=== PATIENT | male | born 1965 | race Caucasian/White ===

== ENCOUNTER 2016-06-25 13:24 | Emergency (ER) | payer BC ==
--- NOTE | 2016-06-25 13:46 | ER Document Report ---
ED Medical Screen (RME) - General Stated Complaint: HAND NUMBNESS Notes: 50 yo male c/o right hand going numb. feels cold, moslty 4th and 5th finger. symptoms intermittant x 5-6 days. today symptoms persistant. no chest pain or shortness of breath. - Related Data Allergies/Adverse Reactions: No Known Allergies Allergy (Unverified 06/25/16 13:42) Physical Exam - Vital signs Vitals: Temp Pulse Resp BP Pulse Ox 98.2 F 78 18 147/87 H 95 06/25/16 13:41 06/25/16 13:41 06/25/16 13:41 06/25/16 13:41 06/25/16 13:41 Course - Vital Signs Vital signs: Temp Pulse Resp BP Pulse Ox 98.2 F 78 18 147/87 H 95 06/25/16 13:41 06/25/16 13:41 06/25/16 13:41 06/25/16 13:41 06/25/16 13:41
--- NOTE | 2016-06-25 15:22 | ER Document Report ---
ED General - General Chief Complaint: Hand Pain Stated Complaint: HAND NUMBNESS Mode of Arrival: Ambulatory Information source: Patient TRAVEL OUTSIDE OF THE [place] IN LAST 30 DAYS: No - HPI Onset: Other - SEVERAL DAYS Onset/Duration: Gradual, Waxing and waning Quality of pain: Throbbing Severity: Moderate Associated symptoms: denies: Chest pain, Chills, Productive cough, Fever, Shortness of breath Exacerbated by: Other - COLD Relieved by: Denies Similar symptoms previously: No Recently seen / treated by doctor: No Notes: Patient describes episodic discomfort in the right hand, affecting mostly the fourth and fifth digits. Episodes of pain are accompanied by pallor and/or cyanosis of the affected digits. Usually resolves spontaneously after 30-45 minutes. - Related Data Allergies/Adverse Reactions: No Known Allergies Allergy (Unverified 06/25/16 13:42) Past Medical History - General Information source: Patient - Social History Smoking Status: Former Smoker Cigarette use (# per day): No Chew tobacco use (# tins/day): Yes Frequency of alcohol use: None Drug Abuse: None Lives with: Spouse/Significant other Family History: Other - NEG. RHEUMATIC DIS. Patient has suicidal ideation: No Patient has homicidal ideation: No - Past Medical History Cardiac Medical History: Reports: Hx Hypercholesterolemia, Hx Hypertension Pulmonary Medical History: Reports: None EENT Medical History: Reports: None Neurological Medical History: Reports: None Endocrine Medical History: Reports: None Renal/ Medical History: Reports: None. Denies: Hx Peritoneal Dialysis Malignancy Medical History: Reports None GI Medical History: Reports: None Musculoskeltal Medical History: Reports None Psychiatric Medical History: Reports: None Traumatic Medical History: Reports: Other - FX R. WRIST, S/P ORIF Past Surgical History: Reports: Hx Orthopedic Surgery - R. WRIST Review of Systems - Review of Systems Constitutional: No symptoms reported. denies: Chills, Fever, Weight gain, Weight loss, Recent illness EENT: No symptoms reported Cardiovascular: No symptoms reported Respiratory: No symptoms reported Gastrointestinal: No symptoms reported Genitourinary: No symptoms reported Musculoskeletal: See HPI Skin: No symptoms reported Hematologic/Lymphatic: No symptoms reported Neurological/Psychological: See HPI Physical Exam - Vital signs Vitals: Temp Pulse Resp BP Pulse Ox 98.2 F 78 18 147/87 H 95 06/25/16 13:41 06/25/16 13:41 06/25/16 13:41 06/25/16 13:41 06/25/16 13:41 Interpretation: Hypertensive. No: Tachycardic, Tachypneic, Febrile - General General appearance: Appears well, Alert In distress: None - HEENT Head: Normocephalic Eyes: Normal Conjunctiva: Normal Ears: Normal Nasal: Normal Mouth/Lips: Normal Mucous membranes: Normal Pharynx: Normal Neck: Normal - Respiratory Respiratory status: No respiratory distress Breath sounds: Normal - Cardiovascular Rhythm: Regular Heart sounds: Normal auscultation Murmur: No Pulses: Normal: Radial - ULNAR PULSE ALSO STRONG Normal capillary refill: No Decreased capillary refill in seconds: 5 Notes: Decreased capillary refill noted in digits 4 and 5, right hand. - Abdominal Inspection: Obese - Extremities General upper extremity: No: Normal inspection - R. HAND (SEE BELOW) Wrist: Other - RADIAL AND ULNAR PULSES STRONG BILATERALLY Hand: Nontender, Nail injury - SUB-UNGUAL LESIONS (? INFARCTS) SEEN ON ALL DIGITS OF RIGHT HAND, NONE ON LEFT., Other - MILD CYANOSIS OF DIGITS #4 AND 5 RIGHT.. No: Swelling - Neurological Neuro grossly intact: Yes Cognition: Normal Orientation: AAOx4 - Psychological Associated symptoms: Normal affect, Normal mood - Skin Skin Temperature: Warm Skin Moisture: Dry Skin Color: Normal, Dusky - PORTIONS OF R. HAND (SEE ABOVE) Skin Turgor: Elastic Course - Vital Signs Vital signs: Temp Pulse Resp BP Pulse Ox 98.4 F 55 L 18 146/82 H 95 06/25/16 15:48 06/25/16 15:48 06/25/16 13:41 06/25/16 15:48 06/25/16 15:48 - Laboratory Result Diagrams: 06/25/16 15:45 06/25/16 15:45 Laboratory results interpreted by me: 06/25/16 15:45 BUN 21 H AST 12 L - Consults DR. FIERRO Consulted provider: follow-up in office Discharge - Discharge Clinical Impression: Raynaud's phenomenon Qualifiers: Raynaud?s-associated gangrene presence: without gangrene Qualified Code(s): I73.00 - Raynaud's syndrome without gangrene Condition: Stable Disposition: HOME, SELF-CARE Additional Instructions: AVOID ALL TOBACCO PRODUCTS. AVOID EXPOSURE OF HAND TO COLD TEMPERATURES, WEAR GLOVES IF NEEDED. TAKE VITAMIN D, 5,000 UNITS ONCE A DAY. TAKE ASPIRIN, 81 mg ONCE A DAY. CONTINUE ALL OTHER MEDICATIONS USUAL. FOLLOW UP WITH DR. FIERRO, CALL FOR APPOINTMENT. Prescriptions: Cholecalciferol (Vitamin D3) [Vitamin D3 5000 unit Capsule] 5,000 unit PO DAILY #100 capsule Referrals: PAULA FIERRO MD [NO LOCAL MD] - Follow up as needed
[2016-06-25 16:04] LABS: ABSOLUTE BASOPHILS # (AUTO) 0.1 10^3/uL (0.0-0.2); ABSOLUTE EOSINOPHILS # (AUTO) 0.1 10^3/uL (0.0-0.6); ABSOLUTE LYMPHOCYTES (AUTO) 2.6 10^3/uL (0.5-4.7); ABSOLUTE MONOCYTES (AUTO) 0.9 10^3/uL (0.1-1.4); ABSOLUTE NEUT (AUTO) 6.6 10^3/uL (1.7-8.2); BASOPHILS % (AUTO) 0.5 % (0-2); EOSINOPHILS % (AUTO) 1.2 % (0-6); HEMATOCRIT 46.2 % (37.9-51.0); HEMOGLOBIN 15.4 g/dL (13.5-17.0); LYMPHOCYTES % (AUTO) 25.7 % (13-45); MEAN CORPUSCULAR HEMOGLOBIN 29.3 pg (27.0-33.4); MEAN CORPUSCULAR HGB CONC 33.5 g/dL (32.0-36.0); MEAN CORPUSCULAR VOLUME 88 fl (80-97); MONOCYTES % (AUTO) 8.4 % (3-13); RED BLOOD COUNT 5.26 10^6/uL (4.35-5.55); RED CELL DISTRIBUTION WIDTH 13.2 % (11.5-14.0); SEGMENTED NEUTROPHILS % (AUTO) 64.2 % (42-78); WHITE BLOOD COUNT 10.2 10^3/uL (4.0-10.5)
[2016-06-25 16:17] LABS: ALANINE AMINOTRANSFERASE 26 U/L (21-72); ALBUMIN 4.5 g/dL (3.5-5.0); ALKALINE PHOSPHATASE 116 U/L (38-126); ANION GAP 12 (5-19); ASPARTATE AMINO TRANSFERASE 12 U/L (17-59); BILIRUBIN,TOTAL 0.6 mg/dL (0.2-1.3); BLOOD UREA NITROGEN 21 mg/dL (7-20); CALCIUM 9.4 mg/dL (8.4-10.2); CARBON DIOXIDE 27 mmol/L (22-30); CHLORIDE 103 mmol/L (98-107); CREATININE RESULT 0.89 mg/dL (0.52-1.25); GLUCOSE 96 mg/dL (75-110); SODIUM 142.4 mmol/L (137-145); TOTAL PROTEIN 6.7 g/dL (6.3-8.2)
[2016-06-25 16:18] LABS: C-REACTIVE PROTEIN < 5.0 mg/L (<10.0)
[2016-06-25 16:38] LABS: ERYTHROCYTE SEDIMENTATION RATE 3 mm/hr (0-20)
[2016-06-25 16:50] VITALS: BP 146/82
== END 2016-06-25 15:48 | disposition home or self-care (01) ==
LOC: ER 13:24
DX: I73.00 Raynaud's syndrome without gangrene (principal); R20.0 Anesthesia of skin; Z87.891 Personal history of nicotine dependence; E78.00 Pure hypercholesterolemia, unspecified; I10 Essential (primary) hypertension
CPT/HCPCS: 36415; 80053; 85025; 85652; 86038; 86140; 99283

== ENCOUNTER 2016-07-13 09:12 | Emergency (ER) | payer BC ==
[2016-07-13 09:17] VITALS: BP 169/89
--- NOTE | 2016-07-13 10:01 | ER Document Report ---
ED General - General Chief Complaint: Leg Pain Stated Complaint: LEG PAIN TRAVEL OUTSIDE OF THE [place] IN LAST 30 DAYS: No - HPI Patient complains to provider of: right leg pain Notes: Patient coming in complaining of right leg pain. Patient states she has severe arthritis in his knee but now is having pain starting his buttocks going states sharp shooting patient states he took 2 800 mg Motrin 6a this morning prior to arrival. Patient otherwise denies any other injury denies any urinary or bowel incontinence. Denies fevers chills nausea vomiting denies drug use. - Related Data Allergies/Adverse Reactions: No Known Allergies Allergy (Verified 07/13/16 09:13) Past Medical History - Social History Smoking Status: Unknown if Ever Smoked Chew tobacco use (# tins/day): Yes Frequency of alcohol use: None Drug Abuse: None Family History: Reviewed & Not Pertinent, Other - NEG. RHEUMATIC DIS. Patient has suicidal ideation: No Patient has homicidal ideation: No - Past Medical History Cardiac Medical History: Reports: Hx Hypercholesterolemia, Hx Hypertension Renal/ Medical History: Denies: Hx Peritoneal Dialysis Past Surgical History: Reports: Hx Orthopedic Surgery - R. WRIST Review of Systems - Review of Systems Constitutional: No symptoms reported EENT: No symptoms reported Cardiovascular: No symptoms reported Respiratory: No symptoms reported Gastrointestinal: No symptoms reported Genitourinary: No symptoms reported Male Genitourinary: No symptoms reported Musculoskeletal: Other - Leg pain Skin: No symptoms reported Hematologic/Lymphatic: No symptoms reported Neurological/Psychological: No symptoms reported Physical Exam - Vital signs Vitals: Temp Pulse Resp BP Pulse Ox 98.2 F 58 L 16 169/89 H 94 07/13/16 09:16 07/13/16 09:16 07/13/16 09:16 07/13/16 09:16 07/13/16 09:16 Interpretation: Normal - General General appearance: Appears well, Alert - HEENT Head: Normocephalic, Atraumatic Eyes: Normal Pupils: PERRL - Respiratory Respiratory status: No respiratory distress Chest status: Nontender Breath sounds: Normal Chest palpation: Normal - Cardiovascular Rhythm: Regular Heart sounds: Normal auscultation Murmur: No - Abdominal Inspection: Normal Distension: No distension Bowel sounds: Normal Tenderness: Nontender Organomegaly: No organomegaly - Back Back: Normal, Nontender - Extremities General upper extremity: Normal inspection, Nontender, Normal color, Normal ROM , Normal temperature, Other - Patient does have reproduction of symptoms when palpating behind the thigh of the right leg General lower extremity: Normal inspection, Nontender, Normal color, Normal ROM , Normal temperature, Normal weight bearing. No: Hansa's sign - Neurological Neuro grossly intact: Yes Cognition: Normal Orientation: AAOx4 Samir Coma Scale Eye Opening: Spontaneous Justice Coma Scale Verbal: Oriented Samir Coma Scale Motor: Obeys Commands Justice Coma Scale Total: 15 Speech: Normal Motor strength normal: LUE, RUE, LLE, RLE Sensory: Normal - Psychological Associated symptoms: Normal affect, Normal mood - Skin Skin Temperature: Warm Skin Moisture: Dry Skin Color: Normal Course - Re-evaluation Re-evalutation: 07/13/16 14:44 Patient coming in for evaluation of right leg pain. Pain is sharp shooting more consistent with sciatica. Patient will be treated with Lidoderm patches and anti-inflammatory medications prednisone and narcotic pain medication encouraged follow-up with his primary care physician or orthopedics. - Vital Signs Vital signs: Temp Pulse Resp BP Pulse Ox 98.2 F 58 L 16 169/89 H 94 07/13/16 09:16 07/13/16 09:16 07/13/16 09:16 07/13/16 09:16 07/13/16 09:16 Discharge - Discharge Clinical Impression: Sciatic leg pain Condition: Good Disposition: HOME, SELF-CARE Instructions: Sciatica ([facility]) Additional Instructions: Follow-up with your primary care physician. Return to the ER symptoms worsen. Take medication as prescribed. I recommend looking up stretching exercises to stretch out your piriformis muscle to help out with your sciatic pain You may try the Lidoderm patches as prescribed. If this patches are too expensive ask your pharmacist about a cheaper [id number] alternative Prescriptions: Lidocaine [Lidoderm 5% (700 mg) Transdermal Patch] 1 patch TP DAILY #30 adh..patch Oxycodone HCl 5 mg PO Q6 #30 tablet Prednisone [Deltasone 20 mg Tablet] 3 tab PO DAILY 5 Days Forms: Return to Work
[2016-07-13] MEDS ORDERED: LIDOCAINE 5% (700 MG) TRANSDERMAL ADH..PATCH TP ONE (10:17)
[2016-07-13] MEDS ORDERED: OXYCODONE-ACETAMINOPHEN 5-325 MG TABLET PO ONE (10:17)
[2016-07-13] MEDS ORDERED: PREDNISONE 20 MG TABLET PO ONE (10:17)
== END 2016-07-13 10:25 | disposition home or self-care (01) ==
LOC: ER 09:12
DX: M54.31 Sciatica, right side (principal); M17.9 Osteoarthritis of knee, unspecified; I10 Essential (primary) hypertension; Z72.0 Tobacco use
CPT/HCPCS: 99283; J7512

== ENCOUNTER 2018-02-23 05:41 | Emergency (ER) | payer BC ==
[2018-02-23 06:30] LABS: APPEARANCE,URINE CLEAR; BILIRUBIN,URINE NEGATIVE (NEGATIVE); COLOR,URINE YELLOW; GLUCOSE, URINE NEGATIVE (NEGATIVE); KETONES,URINE NEGATIVE (NEGATIVE); LEUKOCYTE ESTERASE,URINE NEGATIVE (NEGATIVE); NITRITE,URINE NEGATIVE (NEGATIVE); PROTEIN,URINE NEGATIVE (NEGATIVE); URINE SPECIFIC GRAVITY 1.011; UROBILINOGEN,URINE NEGATIVE mg/dL (<2.0)
--- NOTE | 2018-02-23 07:39 | ER Document Report ---
ED General - General Mode of Arrival: Ambulatory Information source: Patient TRAVEL OUTSIDE OF THE [place] IN LAST 30 DAYS: No <SHAHRIAR MILLER - Last Filed: 02/23/18 10:43> <SHAKILA ALVA - Last Filed: 02/23/18 16:59> - General Chief Complaint: Flank Pain Stated Complaint: FLANK PAIN Time Seen by Provider: 02/23/18 07:06 Notes: 52-year-old male who presents to the emergency department today with complaints of left flank pain that began just before 0500 this morning. Patient states the pain began in his left flank and wraps around to his left groin but did not go into his testicle. Patient describes the pain as a stabbing pain. Patient has a history of kidney stones. Patient states he has had associated nausea but denies any radiation of the pain into his testicle, fevers, or diarrhea. ( SHAHRIAR MILLER) - Related Data Allergies/Adverse Reactions: No Known Allergies Allergy (Verified 02/23/18 07:43) Past Medical History - General Information source: Patient - Social History Smoking Status: Never Smoker Cigarette use (# per day): No Chew tobacco use (# tins/day): Yes Frequency of alcohol use: Rare Drug Abuse: None Lives with: Family Family History: Reviewed & Not Pertinent, Other - NEG. RHEUMATIC DIS. Patient has suicidal ideation: No Patient has homicidal ideation: No - Past Medical History Cardiac Medical History: Reports: Hx Hypercholesterolemia, Hx Hypertension Past Surgical History: Reports: Hx Orthopedic Surgery - R. WRIST <SHAHRIAR MILLER - Last Filed: 02/23/18 10:43> Review of Systems - Review of Systems Constitutional: denies: Fever EENT: No symptoms reported Cardiovascular: No symptoms reported Respiratory: No symptoms reported Gastrointestinal: See HPI, Nausea. denies: Diarrhea Genitourinary: See HPI, Flank pain - left Male Genitourinary: denies: Testicular pain Musculoskeletal: No symptoms reported Skin: No symptoms reported Hematologic/Lymphatic: No symptoms reported Neurological/Psychological: No symptoms reported -: Yes All other systems reviewed and negative <SHAHRIAR MILLER - Last Filed: 02/23/18 10:43> Physical Exam <SHAHRIAR MILLER - Last Filed: 02/23/18 10:43> <SHAKILA ALVA - Last Filed: 02/23/18 16:59> - Vital signs Vitals: Temp Pulse Resp BP Pulse Ox 97.9 F 56 L 14 148/87 H 94 02/23/18 05:47 02/23/18 05:47 02/23/18 05:47 02/23/18 05:47 02/23/18 05:47 - Notes Notes: PHYSICAL EXAM GENERAL: Alert, interacts well. No acute distress. Obese. HEAD: Normocephalic, atraumatic. EYES: Pupils equal, round, and reactive to light. Extraocular movements intact. ENT: Oral mucosa moist, tongue midline. NECK: Full range of motion. Supple. Trachea midline. LUNGS: Clear to auscultation bilaterally, no wheezes, rales, or rhonchi. No respiratory distress. HEART: Regular rate and rhythm. No murmurs, gallops, or rubs. ABDOMEN: Soft, non-tender. Non-distended. Bowel sounds present in all 4 quadrants. No guarding, rigidity, or rebound. BACK: No CVA tenderness with percussion. Lower thoracic left sided paraspinal musculature spasm without tenderness/relief when palpated. EXTREMITIES: Moves all 4 extremities spontaneously. No edema, radial and dorsalis pedis pulses 2/4 bilaterally. No cyanosis. NEUROLOGICAL: Alert and oriented x3. Normal speech. PSYCH: Normal affect, normal mood. SKIN: Warm, dry, normal turgor. No rashes or lesions noted. (SHAHRIAR MILLER) Course - Laboratory Result Diagrams: 02/23/18 08:05 02/23/18 08:05 <SHAHRIAR MILLER - Last Filed: 02/23/18 10:43> - Laboratory Result Diagrams: 02/23/18 08:05 02/23/18 08:05 <SHAKILA ALVA - Last Filed: 02/23/18 16:59> - Re-evaluation Re-evalutation: 02/23/18 09:17 CBC, CMP unremarkable, CT renal protocol shows 4x3 mm stone at the left UVJ. No blood in urine, no signs of infection. Mild hydronephrosis on CAT scan. The stone is suspected passed without difficulty. Patient's pain is controlled with Toradol. Patient will be discharged home with Flomax, Pyridium, ibuprofen and a limited number of Easton in case his pain worsens. (SHAKILA ALVA) - Vital Signs Vital signs: Temp Pulse Resp BP Pulse Ox 97.9 F 56 L 16 131/75 H 100 02/23/18 09:16 02/23/18 09:16 02/23/18 09:16 02/23/18 09:16 02/23/18 09:16 - Laboratory Laboratory results interpreted by me: 02/23/18 08:05 Glucose 135 H Discharge <SHAHRIAR MILLER - Last Filed: 02/23/18 10:43> <SHAKILA ALVA - Last Filed: 02/23/18 16:59> - Discharge Clinical Impression: Left ureteral calculus Condition: Stable Disposition: HOME, SELF-CARE Additional Instructions: Kidney Stone You are passing or have passed a kidney stone. These stones are usually due to increased calcium or uric acid concentrations in your urine. Stones within the kidney itself are not painful. The pain occurs as the stone leaves the kidney to pass down the long tube, called the ureter, leading to the bladder. If the stone is small, it will usually pass by itself. Most patients can pass the stone at home. You will usually receive medications for pain, nausea or vomiting, and sometimes a medication to assist in passing the kidney stone. However, if the pain is very severe or if vomiting prevents you from taking oral pain medications, you may need to return for further treatment. Drink three or four quarts of fluids per day. You will be given pain medication (if needed) and urine strainers. Strain all your urine to see if the stone passes. If your doctor has asked you to bring the stone in for analysis, return with the stone once it has passed. Return if pain or vomiting become severe, if you develop a high fever, if you are unable to pass your urine, or if other unusual symptoms occur. Prescriptions: Hydrocodone/Acetaminophen [Easton 5-325 mg Tablet] 1 tab PO Q6HP PRN #10 tablet PRN Reason: Phenazopyridine HCl [Azo Urinary Pain Relief] 97.5 mg PO TIDP PRN #7 tablet PRN Reason: Tamsulosin HCl [Flomax 0.4 mg Cap.sr] 0.4 mg PO DAILY #7 cap.sr.24h Scribe Attestation: 02/23/18 16:59 I personally performed the services described in the documentation, reviewed and edited the documentation which was dictated to the scribe in my presence, and it accurately records my words and actions. (SHAKILA ALVA) Scribe Documentation - Scribe Written by Marioe:: Radha Preciado, 02/23/2018 1028 acting as scribe for :: Dariel <SHAHRIAR MILLER - Last Filed: 02/23/18 10:43>
[2018-02-23] MEDS ORDERED: KETOROLAC TROMETHAMINE INJ/PF 30 MG/1 ML SDV IV ONE (08:08)
[2018-02-23] MEDS ORDERED: ONDANSETRON HCL INJ/PF 4 MG/2 ML SDV IV ONE (08:09)
--- NOTE | 2018-02-23 08:10 | RADIOLOGY REPORT (SQ) ---
CLINICAL DATA: 52-year-old male with left flank pain. TECHNICAL DATA: Axial CT imaging of the abdomen and pelvis was performed. Sagittal and coronal reconstructed images were then performed. The CT study is performed according to ALARA (as low as reasonably achievable) or ALARA/IMAGE GENTLY, with automatic adjustment of mA and/or kV according to patient size. Comparison: None. FINDINGS: Lung bases: The lung bases are clear. Liver:The liver is normal in size and configuration. No focal hepatic abnormalities are appreciated on this unenhanced scan. Liver attenuation is within normal limits. Spleen:The spleen is normal is size, configuration and attenuation. No focal splenic abnormalities are appreciated on this unenhanced scan. Gallbladder and bile duct: The gallbladder is surgically absent. There is no biliary ductal dilatation. Pancreas: The pancreas is grossly normal in size and configuration. Adrenal Glands:The adrenal glands are normal in size and configuration. Kidneys:The kidneys are normal in size and configuration. There is mild left-sided hydronephrosis and hydroureter secondary to a 0.4 x 0.3 cm calcification in the left ureterovesical junction. There is mild periureteral inflammation. There is mild stranding of the left perinephric fat. There is bilateral nephrolithiasis. There is no evidence of right-sided hydronephrosis. No focal renal abnormalities are identified. Stomach:The stomach is grossly normal. There is no definite hiatal hernia. Bowel:The bowel gas pattern is non specific and non obstructive. Appendix: The appendix is normal. Free air:There is no evidence of free air. Free fluid: There is no evidence of free fluid. Vasculature: The aorta is normal in caliber and contour. The inferior vena cava is grossly unremarkable. There are atherosclerotic calcifications along the abdominal aorta. Lymphadenopathy: No pathologic lymphadenopathy is identified. Bladder: The bladder is moderately decompressed. Reproductive: The prostate gland is grossly within normal limits. Bones: No acute osseous abnormalities are identified. Soft tissues: No focal soft tissue abnormalities are identified. IMPRESSION: 1. Mild left-sided hydronephrosis, hydroureter and mild perinephric inflammation due to a 0.4 x 0.3 cm calcification in the left ureterovesical junction. 2. Bilateral nephrolithiasis. 3. Remote cholecystectomy.
[2018-02-23 08:17] LABS: ABSOLUTE BASOPHILS # (AUTO) 0.1 10^3/uL (0.0-0.2); ABSOLUTE EOSINOPHILS # (AUTO) 0.2 10^3/uL (0.0-0.6); ABSOLUTE LYMPHOCYTES (AUTO) 1.8 10^3/uL (0.5-4.7); ABSOLUTE MONOCYTES (AUTO) 0.6 10^3/uL (0.1-1.4); BASOPHILS % (AUTO) 0.8 % (0-2); EOSINOPHILS % (AUTO) 1.6 % (0-6); HEMATOCRIT 45.9 % (37.9-51.0); HEMOGLOBIN 15.9 g/dL (13.5-17.0); LYMPHOCYTES % (AUTO) 18.5 % (13-45); MEAN CORPUSCULAR HEMOGLOBIN 30.5 pg (27.0-33.4); MEAN CORPUSCULAR HGB CONC 34.6 g/dL (32.0-36.0); MEAN CORPUSCULAR VOLUME 88 fl (80-97); MONOCYTES % (AUTO) 6.6 % (3-13); PLATELET COUNT 255 10^3/uL (150-450); RED BLOOD COUNT 5.21 10^6/uL (4.35-5.55); RED CELL DISTRIBUTION WIDTH 13.5 % (11.5-14.0); SEGMENTED NEUTROPHILS % (AUTO) 72.5 % (42-78); TOTAL CELLS COUNTED % (AUTO) 100 %; WHITE BLOOD COUNT 9.7 10^3/uL (4.0-10.5)
[2018-02-23 08:46] LABS: ALANINE AMINOTRANSFERASE 35 U/L (21-72); ALBUMIN 4.3 g/dL (3.5-5.0); ALKALINE PHOSPHATASE 122 U/L (38-126); ANION GAP 11 (5-19); ASPARTATE AMINO TRANSFERASE 18 U/L (17-59); BILIRUBIN,DIRECT 0.4 mg/dL (0.0-0.4); BILIRUBIN,TOTAL 0.8 mg/dL (0.2-1.3); BLOOD UREA NITROGEN 13 mg/dL (7-20); CALCIUM 9.3 mg/dL (8.4-10.2); CARBON DIOXIDE 25 mmol/L (22-30); CHLORIDE 106 mmol/L (98-107); GLUCOSE 135 mg/dL (75-110); SODIUM 141.6 mmol/L (137-145); TOTAL PROTEIN 6.7 g/dL (6.3-8.2)
[2018-02-23 09:20] VITALS: BP 131/75
== END 2018-02-23 09:57 | disposition home or self-care (01) ==
LOC: ER 05:41
DX: N20.1 Calculus of ureter (principal); R10.9 Unspecified abdominal pain; R11.0 Nausea; E78.00 Pure hypercholesterolemia, unspecified; I10 Essential (primary) hypertension
CPT/HCPCS: 99284; 96374; 96375; 36415; 85025; 80053; 81001; 76380; J1885; J2405

== ENCOUNTER 2018-11-13 13:49 | Emergency (ER) | payer BC, OTHER ==
[2018-11-13] MEDS ORDERED: DIPH/PERTUSS(ACELL)/TETANUS VAC/PF 0.5 ML SYR (>=10YO) IM ONE (13:55)
[2018-11-13] MEDS ORDERED: CEFAZOLIN 2 GM/D5W RTU 2 GM/50 ML RTUPB IV ONE (13:57)
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
[2018-11-13 14:07] LABS: ABSOLUTE BASOPHILS # (AUTO) 0.1 10^3/uL (0.0-0.2); ABSOLUTE EOSINOPHILS # (AUTO) 0.2 10^3/uL (0.0-0.6); ABSOLUTE LYMPHOCYTES (AUTO) 3.2 10^3/uL (0.5-4.7); ABSOLUTE MONOCYTES (AUTO) 1.3 10^3/uL (0.1-1.4); ABSOLUTE NEUT (AUTO) 14.8 10^3/uL (1.7-8.2); BASOPHILS % (AUTO) 0.6 % (0-2); HEMATOCRIT 44.7 % (37.9-51.0); HEMOGLOBIN 15.4 g/dL (13.5-17.0); LYMPHOCYTES % (AUTO) 16.1 % (13-45); MEAN CORPUSCULAR HEMOGLOBIN 30.2 pg (27.0-33.4); MEAN CORPUSCULAR HGB CONC 34.3 g/dL (32.0-36.0); MEAN CORPUSCULAR VOLUME 88 fl (80-97); MONOCYTES % (AUTO) 6.6 % (3-13); PLATELET COUNT 263 10^3/uL (150-450); RED BLOOD COUNT 5.09 10^6/uL (4.35-5.55); RED CELL DISTRIBUTION WIDTH 13.2 % (11.5-14.0); SEGMENTED NEUTROPHILS % (AUTO) 75.7 % (42-78); TOTAL CELLS COUNTED % (AUTO) 100 %; WHITE BLOOD COUNT 19.6 10^3/uL (4.0-10.5)
[2018-11-13] MEDS ORDERED: FENTANYL CITRATE INJ/PF 100 MCG/2 ML AMPUL IV ONE ×2 (14:07→14:47)
[2018-11-13] MEDS ORDERED: FENTANYL CITRATE INJ/PF 100 MCG/2 ML AMPUL ONE (14:08)
[2018-11-13 14:12] LABS: INTERNATIONAL RATION (INR) 0.89; PROTHROMBIN TIME 12.5 SEC (11.4-15.4)
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
[2018-11-13 14:24] LABS: ALANINE AMINOTRANSFERASE 70 U/L (21-72); ALBUMIN 3.9 g/dL (3.5-5.0); ALKALINE PHOSPHATASE 126 U/L (38-126); ANION GAP 11 (5-19); ASPARTATE AMINO TRANSFERASE 71 U/L (17-59); BILIRUBIN,DIRECT 0.3 mg/dL (0.0-0.4); BILIRUBIN,TOTAL 0.7 mg/dL (0.2-1.3); BLOOD UREA NITROGEN 14 mg/dL (7-20); CALCIUM 8.5 mg/dL (8.4-10.2); CARBON DIOXIDE 24 mmol/L (22-30); CHLORIDE 107 mmol/L (98-107); GLUCOSE 130 mg/dL (75-110); POTASSIUM 3.6 mmol/L (3.6-5.0); SODIUM 141.9 mmol/L (137-145); TOTAL PROTEIN 5.9 g/dL (6.3-8.2)
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
[2018-11-13 15:53] VITALS: BP 136/68
== END 2018-11-13 16:12 | disposition short-term general hospital (02) ==
LOC: ER 13:49
DX: S32.9XXA Fracture of unspecified parts of lumbosacral spine and pelvis, initial encounter for closed fracture (principal); S32.019A Unspecified fracture of first lumbar vertebra, initial encounter for closed fracture; S32.029A Unspecified fracture of second lumbar vertebra, initial encounter for closed fracture; S32.039A Unspecified fracture of third lumbar vertebra, initial encounter for closed fracture; S32.049A Unspecified fracture of fourth lumbar vertebra, initial encounter for closed fracture; S32.059A Unspecified fracture of fifth lumbar vertebra, initial encounter for closed fracture; S81.012A Laceration without foreign body, left knee, initial encounter; S21.201A Unspecified open wound of right back wall of thorax without penetration into thoracic cavity, initial encounter; M25.551 Pain in right hip; V84.0XXA Driver of special agricultural vehicle injured in traffic accident, initial encounter; I10 Essential (primary) hypertension; R50.9 Fever, unspecified; Z23 Encounter for immunization
CPT/HCPCS: 96376; 99291; 90471; 96375; 96365; 36415; 85025; 85610; 80053; 71045; 73560; 71260; 72125; 74177; 90715; J3010; J0690